=== PATIENT | female | born 1980 | race Asian ===

== ENCOUNTER 2016-12-23 09:14 | Inpatient (IN) | payer MEDICAID, OTHER ==
[~2016-12-23] VITALS: Ht 147.3 cm; Wt 66.8 kg
[2016-12-23 10:21] LABS: BASOPHILS % (AUTO) 0.3 % (0.0-2.0); EOSINOPHILS % (AUTO) 0.8 % (1.0-6.0); HEMATOCRIT 40.2 % (36-46); HEMOGLOBIN 13.5 g/dL (12.0-16.0); LYMPHOCYTES % (AUTO) 11.1 % (22.0-44.0); MEAN CORPUSCULAR HEMOGLOBIN 29.2 pg (26.0-34.0); MEAN CORPUSCULAR HGB CONC 33.5 G/dL (31.0-37.0); MEAN CORPUSCULAR VOLUME 87 fL (80-100); MONOCYTES # (AUTO) 0.2 K/uL (0.1-1.0); MONOCYTES % (AUTO) 2.3 % (2.0-9.0); NEUTROPHILS # (AUTO) 7.8 K/uL (1.8-7.7); PLATELET COUNT (AUTO) 330 K/uL (150-450); RED BLOOD CELL COUNT(AUTO) 4.61 MIL/uL (4.00-5.20); RED CELL DISTRIBUTION WIDTH 12.9 % (11.5-14.5); WHITE BLOOD COUNT (AUTO) 9.1 K/uL (4.5-11.0)
[2016-12-23 10:25] LABS: NEUTROPHILS % (AUTO) 85.5 % (40.0-70.0)
[2016-12-23 10:30] LABS: ANION GAP 10 mmol/L (8-16); CALCIUM, TOTAL 8.6 mg/dL (8.8-10.5); CARBON DIOXIDE 25 mmol/L (22-29); CHLORIDE 102 mmol/L (98-107); CREATININE 0.81 mg/dL (0.60-1.30); GLOMERULAR FILTR. RATE CALC > 60 mL/min (>60); POTASSIUM 3.8 mmol/L (3.5-5.1); SODIUM SERUM 137 mmol/L (136-145); UREA NITROGEN, BLOOD 13 mg/dL (7-18)
[2016-12-23 10:36] LABS: ALANINE AMINOTRANSFERASE 24 U/L (12-78); ALBUMIN 3.6 g/dL (3.4-5.0); ASPARTATE AMINOTRANSFERASE 19 U/L (15-37); BILIRUBIN,TOTAL 0.2 mg/dL (0.1-1.0); TOTAL PROTEIN, SERUM 7.4 g/dL (6.4-8.2)
[2016-12-23] MEDS ORDERED: LORazepam 2 MG TABLET PO ONE (11:45)
[2016-12-23] MEDS ORDERED: HALOPERIDOL 5 MG TABLET PO ONE (11:45)
[2016-12-23] MEDS ORDERED: LORazepam 2 MG TABLET PO PRN (12:00)
[2016-12-23] MEDS ORDERED: HALOPERIDOL 5 MG TABLET PO PRN (12:00)
[2016-12-23] MEDS ORDERED: ZOLPIDEM TARTRATE 10 MG TABLET PO PRN (12:00)
[2016-12-23 14:39] VITALS: BP 123/79
[2016-12-23] MEDS ORDERED: INFLUENZA VIRUS VACCINE QVS 2016-17 (3YR+)/PF 60 MCG/0.5 ML SYRINGE IM ONE (15:15)
[2016-12-23 16:00] VITALS: BP 124/72
[2016-12-24 09:03] VITALS: BP 129/64
[2016-12-24 16:54] VITALS: BP 102/78
[2016-12-24] MEDS: QUEtiapine FUMARATE 200 MG TABLET PO SCH (20:24)
[2016-12-25] MEDS: LITHIUM CARBONATE 300 MG CAPSULE PO SCH ×2 (09:15→16:32)
[2016-12-25 09:19] VITALS: BP 133/76
[2016-12-25 16:49] VITALS: BP 145/82
[2016-12-25] MEDS: QUEtiapine FUMARATE 200 MG TABLET PO SCH (20:06)
[2016-12-25] MEDS: ALBUTEROL SULFATE HFA 90 MCG/PUFF 8 GM INHALER IH PRN (20:07)
[2016-12-26 08:07] VITALS: BP 116/63
[2016-12-26] MEDS: LITHIUM CARBONATE 300 MG CAPSULE PO SCH ×2 (08:57→16:19)
[2016-12-26] MEDS: ALBUTEROL SULFATE HFA 90 MCG/PUFF 8 GM INHALER IH PRN (16:20)
[2016-12-26 18:00] VITALS: BP 129/79
[2016-12-26] MEDS: QUEtiapine FUMARATE 200 MG TABLET PO SCH (21:08)
[2016-12-27 05:16] VITALS: BP 131/78
[2016-12-27 08:07] VITALS: BP 131/77
[2016-12-27] MEDS: LITHIUM CARBONATE 300 MG CAPSULE PO SCH (08:08)
[2016-12-27] MEDS ORDERED: QUET200T PO (11:26)
[2016-12-27] MEDS ORDERED: LITH300C3 PO (11:26)
== END 2016-12-27 14:47 | disposition home or self-care (01) | DRG 750 ==
LOC: EEVIPCON 09:20 → EMS 09:20 → 3EI 13:22
DX: F20.0 Paranoid schizophrenia (principal); R45.850 Homicidal ideations; J45.909 Unspecified asthma, uncomplicated; Z91.14 Patient's other noncompliance with medication regimen
CPT/HCPCS: 99285; G0480; J3535